=== PATIENT | female | born 1980 | race Caucasian/White ===

== ENCOUNTER 2017-12-20 11:25 | Inpatient (IN) | payer BC, OTHER ==
[~2017-12-20] VITALS: Ht 170.2 cm; Wt 61.7 kg
[~2017-12-20 11:25] MED LIST: POTASSIUM CHLORIDE 10 MEQ TAB.PRT.SR PO ONE
--- NOTE | 2017-12-20 13:30 | NUR ---
Pre-admission Pre-admission assessment performed in the intake department of [facility]. Pt is A&O and ambulatory with a steady gait. She appears mildly intoxicated with delayed thought process and speech. Vital signs are B/P: 133/92, HR 101, RR 16, O2 sat 99%, T 97.9, pain 0/10. Pt reports that she has been using Xanax and Fioricet. Last used both today prior to admission. Pt is stable and admission is to continue on the [facility].
[2017-12-20] MEDS ORDERED: TOPI50TA24 PO ×2 (14:33)
[2017-12-20] MEDS ORDERED: ESCI20TA PO (14:33)
[2017-12-20] MEDS ORDERED: AMIT50TA3 PO (14:33)
[2017-12-20] MEDS ORDERED: ALBU8.5H8 INH (14:33)
[2017-12-20] MEDS ORDERED: MELA5TAB PO (14:33)
[2017-12-20 15:02] LABS: *URINE HCG, QUAL NEGATIVE (NEGATIVE)
[2017-12-20 15:06] LABS: *AMPHETAMINE, URINE NEGATIVE (NEGATIVE); *BARBITURATE, URINE POSITIVE (NEGATIVE); *CANNABINOID, URINE POSITIVE (NEGATIVE); *COCCAINE, URINE NEGATIVE (NEGATIVE); *OPIATE, URINE NEGATIVE (NEGATIVE); *PHENCYCLIDINE SCREEN,URINE NEGATIVE (NEGATIVE)
[2017-12-20 16:00] VITALS: BP 133/92
[2017-12-20] MEDS ORDERED: ONDANSETRON ODT 4 MG TAB.RAPDIS SL PRN (16:00)
[2017-12-20] MEDS ORDERED: ACETAMINOPHEN 325 MG TABLET PO PRN (16:00)
[2017-12-20] MEDS ORDERED: MAGNESIUM HYDROXIDE 30 ML LIQUID UDC PO PRN (16:00)
[2017-12-20] MEDS ORDERED: ONDANSETRON 4 MG/2 ML VIAL IM PRN (16:00)
[2017-12-20] MEDS ORDERED: MAG HYDROX/AL HYDROX/SIMETH 30 ML LIQUID UDC PO PRN (16:00)
[2017-12-20] MEDS ORDERED: IBUPROFEN 400 MG TABLET PO PRN (16:00)
[2017-12-20] MEDS ORDERED: LORAZEPAM 2 MG/1 ML VIAL IM PRN (16:00)
[2017-12-20] MEDS ORDERED: LOPERAMIDE HCL 2 MG CAPSULE PO PRN ×2 (16:00)
[2017-12-20] MEDS ORDERED: THIAMINE HCL 200 MG/2 ML VIAL IM ONE (16:00)
--- NOTE | 2017-12-20 16:00 | NUR ---
ADMISSION NOTE Pt is a 37 year old female, A&Ox4. Pt is presenting herself to [facility] for medically supervised withdrawal from Xanax use and Fioricet use. Pt is observed intoxicated and is observed with delayed speech, delayed thought process and is unable to keep her eyes open. Pt is observed nodding in and out. Pt states she snorted 2mg of Xanax at 0900 and Fioricet 3 tabs PO at 0800. Pt also states she takes medical marijuana 40mg edible strips and she consumed 80mg of THC prior to entering intake. Body check was complete; skin is intact, warm and dry to touch. Lung sounds are clear bilaterally. Pt states of PMH of Anxiety, Depression, Insomnia, Asthma, Migraines and states she had 2 major head injuries (in 2000 and in 2014). Pt has also had her gallbladder removed 2 years ago and left knee reconstruction in 1996. Pt denies any hx of Sz. Pt is on Lexapro for Depression, Topamax for Migraines and was prescribed Xanax for anxiety. Pt states PCP is Dr. Delaney. Pt states she has allergies to Chocolate and follows a regular diet. Substance Hx are as follows: 1. Xanax Pt states she first began using Xanax in 2001 intermittently, but in 2013 she was prescribed Xanax for Anxiety after her divorce and began using on a daily basis. Pt states she has been using 2-4mg daily for the past 6 months and has been snorting it. Last use was on 12/20/17 at 0900, pt states she snorted 2mg. 2. Fioricet Pt states she first started using in May 2017. Pt states she has been using 3-6 tablets (150-300mg) 2-3times a week for the past 6 months. Last use was on 12/20/17, pt states she consumed 3 tables at 0800. Pt states she was also consuming medical marijuana for the past 2 years. Pt states she would purchase 40mg of THC strips and place 80mg underneath her tongue daily. Last use was on 12/20/17 prior to entering intake, pt states of placing 80mg of THC underneath her tongue. In addition, pt states of having history of drinking and became sober on 04/22/13 but relapsed for 1 day on 12/19/17 and drank 300ml of Jewel Mendoza. Pt was unable to verbalize insight in why she uses. She was observed nodding in and out with delayed speech and thought process. Pt stated she was assisted by her friend into detox because she asked for help stating to her friend, I need help, I cannot do this anymore. Pt stated, I dont want to . Pt verbalized this is her first time in treatment but did attempt sobriety on her own that was unsuccessful. Pt states, I cant seem to deal with the world it is right now. Everything is a trigger. Pt states she plans to continue with 30 day rehabilitation center at [facility]. Pt denies any 5150 or withdrawal induced delirium. Pt was seen and examined by Dr. Srivastava. Pt is to start on 5 day Phenobarbital today at 2100. New order was noted and carried out. Safety precautions observed. Will continue to monitor.
--- NOTE | 2017-12-20 19:10 | NUR ---
END OF SHIFT Pt is a newly admit for benzo withdrawal. Pt is to start on a 5 day Phenobarbital taper tonight. pt arrived on the unit intoxicated and went to sleep for the remaining of the shift. CIWA assessment is not applicable at this time. Pt is on fall and seizure precautions. Endorsed to film processing shift supervisor nurse to continue with care.
--- NOTE | 2017-12-20 19:30 | NUR ---
START OF SHIFT Received 37 year old female patient admitted on 12/20/17 for Benzodiazepine and Barbiturate withdrawal. Pt is alert and oriented x4. Pt noted to be disheveled, poor eye contact, irritable, anxious, guarded, agitated, and labile. She is scheduled to start a 5 day Phenobarbital taper tonight. Breathing even and unlabored, safety measures in place. Will continue to monitor.
[2017-12-20 20:00] VITALS: BP 134/89
--- NOTE | 2017-12-20 20:00 | NUR ---
CIWA Pt noted to be disheveled, with poor eye contact, irritable, anxious, guarded, agitated, and labile. CIWA:9 prior to 2100 medication administration. Will continue to monitor.
[2017-12-20] MEDS ORDERED: PHENOBARBITAL 60 MG TABLET PO SCH (21:00)
[2017-12-20 22:37] LABS: BASOPHILS % (AUTO) 0.6 % (0.0-2.0); EOSINOPHILS # (AUTO) 0.1 K/uL (0.0-0.7); EOSINOPHILS % (AUTO) 1.4 % (0.0-7.0); HEMATOCRIT 35.7 % (31.2-41.9); HEMOGLOBIN 12.3 g/dL (10.9-14.3); LYMPHOCYTES # (AUTO) 1.8 K/uL (20.0-40.0); LYMPHOCYTES % (AUTO) 37.3 % (20.5-51.5); MEAN CORPUSCULAR HEMOGLOBIN 33.4 uug (24.7-32.8); MEAN CORPUSCULAR HGB CONC 35 g/dL (32.3-35.6); MEAN CORPUSCULAR VOLUME 96.5 fL (75.5-95.3); MONOCYTES # (AUTO) 0.4 K/uL (2.0-10.0); MONOCYTES % (AUTO) 9.1 % (0.0-11.0); NEUTROPHILS # (AUTO) 2.5 K/uL (1.8-8.9); NEUTROPHILS % (AUTO) 51.6 % (38.5-71.5); PLATELET COUNT (AUTO) 217 K/uL (179-408); WHITE BLOOD COUNT (AUTO) 4.8 K/uL (3.8-11.8)
[2017-12-20 22:49] LABS: ALANINE AMINOTRANSFERASE 19 U/L (14-59); ALKALINE PHOSPHATASE 49 U/L (50-136); ASPARTATE AMINOTRANSFERASE 9 U/L (15-37); BILIRUBIN,TOTAL 0.3 mg/dL (0.2-1.0); CARBON DIOXIDE 27 mmol/L (21-32); CHLORIDE 106 mmol/L (98-107); CREATININE 0.8 mg/dL (0.6-1.3); GLUCOSE 90 mg/dL (74-106); MAGNESIUM 1.9 mg/dL (1.8-2.4); TOTAL PROTEIN, SERUM 6.5 g/dL (6.4-8.2); UREA NITROGEN, BLOOD 5 mg/dL (7-18)
[2017-12-20 22:59] LABS: ETHANOL < 3 MG/DL (0-0)
[2017-12-20] MEDS ORDERED: POTASSIUM CHLORIDE 10 MEQ TAB.PRT.SR PO ONE (23:30)
[2017-12-20 23:34] LABS: THYROID STIMULATING HORMONE 0.685 mIU/mL (0.358-3.740)
[2017-12-21] VITALS: BP 119/76
--- NOTE | 2017-12-21 | NUR ---
CIWA Pt noted with restlessness, fatigue, clammy skin and chills. CIWA:9. Will continue to monitor
[2017-12-21] MEDS ORDERED: POTASSIUM CHLORIDE 10 MEQ TAB.PRT.SR PO ONE (01:40)
[2017-12-21] MEDS: CLONIDINE HCL 0.1 MG TABLET PO PRN (01:54)
--- NOTE | 2017-12-21 01:56 | NUR ---
PRN CLONIDINE Pt noted with sweats, chills and diaphoresis. PRN Clonidine administered as ordered. Will monitor effectiveness.
--- NOTE | 2017-12-21 02:56 | NUR ---
PRN CLONIDINE REASSESSMENT PRN medication effective. Pt is lying in bed with eyes closed and is noted to be asleep. Breathing is even and unlabored, safety measures in place. Will monitor.
[2017-12-21 04:00] VITALS: BP 114/70
--- NOTE | 2017-12-21 04:00 | NUR ---
CIWA DEFERRED Pt lying in bed with eyes closed and is noted to be asleep. Breathing is even and unlabored, safety measures in place. Will monitor.
--- NOTE | 2017-12-21 07:12 | NUR ---
END OF SHIFT Pt is a 37 year old female patient admitted on 12/20/17 for Benzodiazepine and Barbiturate withdrawal. Pt remains alert and oriented x4. She was noted to be disheveled, poor eye contact, irritable, anxious, guarded, agitated, and labile during the shift. She is receiving a 5 day Phenobarbital taper and is tolerating well. She slept a total of 9 hrs, Intake: 500mL, Void: x1, BM:0, CIWA:9 at 0000. Breathing even and unlabored, safety measures in place. Endorsed to AM shift.
[2017-12-21 08:00] VITALS: BP 109/73
--- NOTE | 2017-12-21 08:00 | NUR ---
START OF SHIFT Pt is a 37 yr old female, AA&Ox4. pt was admitted on 12/20/17 for Benzo withdrawal and is on 5 day Phenobarbital taper as ordered. Received report from lead shop operator nurse. Pt was given Clonidine PRN during the night. Medication was effective. Pt slept for 9 hrs. Last CIWA score was 9. Pt is c/o anxiety, agitation, nausea, headache, muscle aches and sweats and chills. Skin is intact, warm and moist to touch. Pt was encouraged increase fluid intake. CIWA score is 14. Safety precautions observed. Call light is within reach. Will continue to monitor.
[2017-12-21] MEDS: ESCITALOPRAM OXALATE 10 MG TABLET PO SCH (08:28)
[2017-12-21] MEDS: PHENOBARBITAL 60 MG TABLET PO SCH ×4 (08:29→20:55)
[2017-12-21] MEDS: FOLIC ACID 1 MG TABLET PO SCH (08:29)
[2017-12-21] MEDS: THIAMINE HCL 100 MG TABLET PO SCH (08:29)
[2017-12-21] MEDS: MULTIVITAMINS,THERAPEUTIC TABLET PO SCH (08:29)
--- NOTE | 2017-12-21 08:29 | NUR ---
PRN GIVEN Pt was c/o headache /. Facial grimacing is observed. Pt was given Motrin 400mg PO PRN. Encouraged increase fluid intake. Will continue to monitor.
[2017-12-21] MEDS ORDERED: LORAZEPAM 1 MG TABLET PO PRN ×2 (08:45)
[2017-12-21] MEDS ORDERED: TUBERCULIN,PURIF.PROT.DERIV. 5 TU/0.1 ML TEST ID ONE (09:00)
--- NOTE | 2017-12-21 09:29 | NUR ---
PRN RE-ASSESSMENT Pt continues to c/o headache but states "the Motrin was a little effective". Encouraged increase fluid intake. Will continue to monitor.
[2017-12-21 12:00] VITALS: BP 118/66
[2017-12-21] MEDS ORDERED: Medication Not On Formulary EA (Topiramate 50 MG) PO SCH ×2 (14:30→18:00)
[2017-12-21] MEDS: TOPIRAMATE 25 MG TABLET PO SCH ×2 (14:50→20:55)
--- NOTE | 2017-12-21 14:52 | NUR ---
PRN GIVEN Pt was c/o headache, anxiety, nausea, sweats and chills. Pt is observed with fine tremors and runny nose. CIWA score was 14. Pt was given Ativan 1mg PO PRN and Topamax 50mg PO as scheduled for headache and s/s of w/d. Encouraged increase fluid intake. Will continue to monitor.
[2017-12-21 15:38] LABS: CREATININE 0.8 mg/dL (0.6-1.3); POTASSIUM 3.7 mmol/L (3.5-5.1)
[2017-12-21 16:00] VITALS: BP 113/74
--- NOTE | 2017-12-21 16:00 | NUR ---
PRN RE-ASSESSMENT Ativan 1mg PO PRN was effective. CIWA is now 10. Pt states, "it was helpful". Pt is c/o feeling depressed and is observed with flat affect and avoidant in eye contact. Pt was noted drinking the same water bottle throughout the day. Pt was encouraged to drink more fluids for hydration. Will continue to monitor.
--- NOTE | 2017-12-21 16:04 | NUR ---
Therapist prompted client to attend group therapy.
--- NOTE | 2017-12-21 19:10 | NUR ---
END OF SHIFT Pt is a 37 yr old female, AA&Ox4. Pt was admitted on 12/20/17 for Benzo withdrawal and is on 5 day Phenobarbital taper. Pt has been observed isolative and remained in her room throughout the day. Pt states of feeling depressed and was observed crying after speaking with therapist. Pt is observed with flat affect. Pt was c/o anxiety, agitation, headache, nausea, sweats and chills. Pt was given Motrin 400mg PO PRN at 0829 and Ativan 1mg PO PRN at 1450. Medication was effective. Last CIWA score was 10 at 1600. Pt was encouraged increase fluid intake for hydration. Safety precautions observed. Endorsed to manufacturing shift supervisor nurse to continue with care.
--- NOTE | 2017-12-21 19:30 | NUR ---
START OF SHIFT Received 37 year old female patient admitted on 12/20/17 for Benzodiazepine and Barbiturate withdrawal. Pt is alert and oriented x4. Pt noted with anxiety, chills, sweats, clammy skin, poor eye contact, lethargic, and withdrawn. Per endorsement, she received PRN Motrin and Ativan 1 mg. Last CIWA:10 at 1600. Breathing is even and unlabored, safety measures in place. Will monitor.
[2017-12-21 20:00] VITALS: BP 111/69
--- NOTE | 2017-12-21 20:00 | NUR ---
CIWA Pt noted with anxiety, chills, sweats, clammy skin, poor eye contact, lethargic, and withdrawn. CIWA:10 prior to 2100 medication administration. Will monitor.
[2017-12-21] MEDS: AMITRIPTYLINE HCL 50 MG TABLET PO SCH (20:56)
[2017-12-22] VITALS: BP 107/62
--- NOTE | 2017-12-22 | NUR ---
CIWA DEFERRED Pt lying in bed with eyes closed and is noted to be asleep. Breathing is even and unlabored, safety measures in place. Will monitor.
--- NOTE | 2017-12-22 04:00 | NUR ---
VITALS REFUSED, CIWA DEFERRED 0400 vitals refused. CIWA deferred. Pt lying in bed with eyes closed, noted to be asleep. Breathing even and unlabored, safety measures in place. Will monitor.
--- NOTE | 2017-12-22 07:02 | NUR ---
END OF SHIFT Pt is a 37 year old female patient admitted on 12/20/17 for Benzodiazepine and Barbiturate withdrawal. She remains alert and oriented x4. She was noted with anxiety, chills, sweats, clammy skin, poor eye contact, lethargic, and withdrawn behavior. Pt is disheveled and odorous. She did not receive or request PRN medications. She slept a total of 10 hrs, Intake: 150mL, Void: 0, BM:0, Last CIWA:10 at 2000. Breathing is even and unlabored, safety measures in place. Will endorse to AM shift.
--- NOTE | 2017-12-22 07:30 | NUR ---
start of shift note: received pt from night court magistrate nurse, pt is in stable condition at this time no s/s of pain or discomfort, pt [facility]/f[facility]icet, pt is tolerating phenobarbital taper well. no A/R noted. last documented ciwa is 10, will continue to monitor pt for any changes.
[2017-12-22 08:00] VITALS: BP 109/72
[2017-12-22] MEDS: ESCITALOPRAM OXALATE 10 MG TABLET PO SCH (08:32)
[2017-12-22] MEDS: THIAMINE HCL 100 MG TABLET PO SCH (08:32)
[2017-12-22] MEDS: PHENOBARBITAL 60 MG TABLET PO SCH ×3 (08:32→23:00)
[2017-12-22] MEDS: FOLIC ACID 1 MG TABLET PO SCH (08:32)
[2017-12-22] MEDS: MULTIVITAMINS,THERAPEUTIC TABLET PO SCH (08:33)
[2017-12-22] MEDS: TOPIRAMATE 25 MG TABLET PO SCH ×2 (08:33→23:01)
--- NOTE | 2017-12-22 08:40 | NUR ---
PRN administration: pt verbalized she Finally took a few bites of food and now that her stomach is uncomfortable, Maalox was administered and will re-assess effectiveness of medication.
[2017-12-22] MEDS ORDERED: Medication Not On Formulary EA (Escitalopram Oxalate (Lexapro) 20 MG) PO SCH (09:00)
--- NOTE | 2017-12-22 09:00 | NUR ---
ciwa: pt's ciwa is 13, pt with a headache, slight tremors, increased anxiety and agitation, slight stomach discomfort with breakfast this morning.
[2017-12-22 09:12] LABS: HEPATITIS B SURFACE AG Negative (Negative)
--- NOTE | 2017-12-22 09:40 | NUR ---
prn-assessment: pt verbalized maalox was effective and that stomach discomfort has diminished
--- NOTE | 2017-12-22 12:52 | NUR ---
Therapist prompted client to attend group therapy sessions.
[2017-12-22 13:00] VITALS: BP 139/84
[2017-12-22] MEDS: KETOROLAC TROMETHAMINE 30 MG INJ IM PRN (15:00)
--- NOTE | 2017-12-22 15:00 | NUR ---
PRN Toradol administration: pt with hx of head injury, prn toradol was administered for headache pain level 8/10, will re-assess effectiveness of medication.
--- NOTE | 2017-12-22 15:30 | NUR ---
PRN re-assessment: pt verbalized headache pain is diminished pain level 3/10 and pt is now able to attend group.
[2017-12-22 18:01] VITALS: BP 136/80
--- NOTE | 2017-12-22 19:14 | NUR ---
end of shift note: received report from egg breaker nurse that patient has a flat affect and depressed demeanor. pt throughout the day increased po intake in regards to food and started joining activities and groups. pt is interacting with other patients and stated she is starting to feel better, will encourage adequate food intake, and to attend groups and activities. will endorse pt to egg breaker nurse. Addendum: 12/22/17 at 1928 by LUISANA DE LA CRUZ RN last ciwa is 9, pt with slight headache, increased sweats, mild agitation and decreased anxiety.
--- NOTE | 2017-12-22 19:30 | NUR ---
Start of Shift Patient Received. Per endorsement, continues on a modified Phenobarbital taper. Patient received PRN Maalox and Toradol with medication noted to be effective. Patient has been noted isolative with flat and depressed affect. Patient has been noted to be engaging in social and group activities during morning shift. Upon rounds patient is noted walking and socializing with other clients. Patient and primary nurse at bedside and patient is able to verbalize I feel much better today. Im happy that Lizeth met other people here because it helps me to come out of my room. She is noted to be disheveled, anxious, restless, and tremulous. Patient verbalizes that the medications have been effective in minimizing signs and symptoms of withdrawal. All needs attended to promptly. Will continue plan of care as ordered.
[2017-12-22 20:30] VITALS: BP 145/95
[2017-12-22] MEDS: AMITRIPTYLINE HCL 50 MG TABLET PO SCH (23:00)
[2017-12-23 00:29] VITALS: BP 146/93
[2017-12-23] MEDS: diphenhydrAMINE 50 MG CAPSULE PO PRN ×2 (00:32→21:46)
[2017-12-23] MEDS: CLONIDINE HCL 0.1 MG TABLET PO PRN (00:32)
--- NOTE | 2017-12-23 00:35 | NUR ---
PRN Medication Administration Patient is noted pacing the hallways, verbalizes increased anxiety, insomnia, and restless. Patient is noted to be emotional. PRN Clonidine and Benadryl administered. Will continue to monitor.
--- NOTE | 2017-12-23 01:35 | NUR ---
PRN Medication Reassessment Patient is noted in bed with eyes closed. Breathing even and non labored. No signs of restlessness or discomfort noted. Patient received PRN Benadryl and Clonidine with medication noted to be effective. Will continue to monitor.
--- NOTE | 2017-12-23 04:15 | NUR ---
CIWA Assessment Patient is noted in bed with eyes closed. Breathing even and non labored. Patient refused vitals. CIWA not able to complete assessment as per order. No restlessness or discomfort noted. Will continue to monitor.
--- NOTE | 2017-12-23 07:16 | NUR ---
End of Shift Patient is noted in bed with eyes closed. Breathing even and non labored. Patient continues on a modified Phenobarbital taper. Patient received PRN Clonidine and Benadryl with medication noted to be effective. Patient noted to sleep a total of 6 hours. Last noted CIWA 13. She is noted to be anxious, restless, irritable, and labile. All needs attended to promptly. Will continue plan of care as ordered.
[2017-12-23 08:00] VITALS: BP 134/80
--- NOTE | 2017-12-23 08:00 | NUR ---
START OF SHIFT Pt is a 37 yr old female, AA&Ox4. pt was admitted on 12/20/17 for Benzo withdrawal and is on 5 day Phenobarbital taper as ordered. Received report from colorer machine nurse. Pt was given Clonidine PRN and Benadryl PRN during the night. Medication was effective. Pt slept for 6 hrs. Last CIWA score was 13. Pt is c/o anxiety, stating "I'm like jumping off the rodgers". Pt is stating her room feels so small and is observed walking around the unit. Pt is c/o headache, sweats and chills. Skin is intact, warm and moist to touch. Pt was encouraged increase fluid intake. CIWA score is 9 this morning. Safety precautions observed. Call light is within reach. Will continue to monitor.
[2017-12-23] MEDS: THIAMINE HCL 100 MG TABLET PO SCH (08:49)
[2017-12-23] MEDS: TOPIRAMATE 25 MG TABLET PO SCH ×2 (08:49→21:45)
[2017-12-23] MEDS: ESCITALOPRAM OXALATE 10 MG TABLET PO SCH (08:50)
[2017-12-23] MEDS: MULTIVITAMINS,THERAPEUTIC TABLET PO SCH (08:50)
[2017-12-23] MEDS: FOLIC ACID 1 MG TABLET PO SCH (08:50)
[2017-12-23] MEDS: PHENOBARBITAL 60 MG TABLET PO SCH ×2 (08:50→21:46)
[2017-12-23 12:00] VITALS: BP 134/84
[2017-12-23] MEDS: KETOROLAC TROMETHAMINE 30 MG INJ IM PRN (12:11)
--- NOTE | 2017-12-23 12:16 | NUR ---
PRN GIVEN Pt was c/o headache 11/01. pt was in recreation room noted in position and stating her head hurts. VS are BP 134/84, HR 88, RR 16, O2 is 99%. Toradol 30ml IM PRN was given for 11/01 headache. Pt was encouraged increase fluid intake for hydration. CIWA score is 16. Will continue to monitor.
--- NOTE | 2017-12-23 12:43 | NUR ---
therapist prompted client to attend group therapy.
--- NOTE | 2017-12-23 13:16 | NUR ---
PRN RE-ASSESSMENT Toradol PRN was effective. Pt states of still having a headache but pain level is 4/10. Pt was encouraged increase fluid intake. Will continue to monitor.
[2017-12-23 16:00] VITALS: BP 128/88
--- NOTE | 2017-12-23 18:59 | NUR ---
END OF SHIFT Pt is a 37 yr old female, AA&Ox4. Pt was admitted on 12/20/17 for Benzo withdrawal and is on 5 day Phenobarbital taper as ordered. Pt has been cooperative with medication regimen and plan of care. Pt was observed attending group therapy. Pt has been c/o increase headache 9/10 and anxiety. Pt has been observed emotional with episodes of crying. Pt was given Toradol 30mg IM PRN at 1211 for increase headache 9/10. Medication was effective. Pt continues to c/o headache but is able to tolerate pain level. Last CIWA score was 12 at 1600. Pt was encouraged increase fluid intake for hydration. Endorsed to retail shift supervisor nurse to continue with care.
--- NOTE | 2017-12-23 19:45 | NUR ---
Start of Shift Patient Received. Patient continues on a modified Phenobarbital taper. She has been compliant with plan of care and attending group therapy. She was reported increased headaches, dizziness, and anxiety. She received PRN Toradol with medication reported to be effective. Patient is noted with improvement with meals but encouragement is still needed with fluid intake. Upon rounds patient is noted in the activities room participating in a group meeting. Upon exiting the group meeting patient stopped at the nurses station to receive smoking pass. Patient was noted to state Did they report to you that I fell over today because I have been dizzy all day. Asked patient to explain further, and she was noted to state well I didnt really fall over. I just have been dizzy. Explained to patient that patient would need to remain on unit and unable to go out to smoking patio due to patient reporting episodes of dizziness. Patient immediately retracted her statements and states Im not dizzy. I dont want to not be able to go outside or be kept her longer. CN and Primary nurse at bedside with patient. Patient denies any episodes of dizziness since prior to dinner. Vitals rendered and noted. Explained to patient that she would be able to smoke as long as she is compliant with using a wheelchair while off the unit. Patient verbalized understanding. She is noted to be emotionally labile. Patient is noted to remain in bed. Encouraged fluids as tolerated with fluids at bedside. Will continue to monitor.
[2017-12-23 20:06] VITALS: BP 131/88
--- NOTE | 2017-12-23 20:30 | NUR ---
CIWA Assessment patient is noted with increased anxiety, agitation, tremors, verbalizing increased light sensitivity, dizziness, and noted to be emotionally labile. CIWA noted to be 18. Medications administered as ordered. Will continue to monitor.
[2017-12-23] MEDS: AMITRIPTYLINE HCL 50 MG TABLET PO SCH (21:44)
--- NOTE | 2017-12-23 21:46 | NUR ---
PRN Medication Administration Patient is noted verbalizing inability of falling asleep. PRN Benadryl administered with routine medications. Will continue to monitor.
--- NOTE | 2017-12-23 22:45 | NUR ---
PRN Medication Reassessment Patient is noted in bed with eyes closed. Breathing even and non labored. No signs of restlessness or facial grimacing noted. PRN Benadryl noted to be effective. Will continue to monitor.
--- NOTE | 2017-12-24 00:20 | NUR ---
VITALS AND CIWA DEFERRED Patient noted to be lying in bed with eyes closed and breathing even and unlabored. Vital signs refused and CIWA assessment deferred. Will continue to monitor.
[2017-12-24 04:22] VITALS: BP 119/75
[2017-12-24] MEDS: KETOROLAC TROMETHAMINE 30 MG INJ IM PRN (04:40)
--- NOTE | 2017-12-24 04:40 | NUR ---
PRN MEDICATION ADMINISTRATION During 0400 vital sign assessment, patient reported a headache with an 8/10 pain level. Toradol 30 mg IM PRN was administered to the right upper extremity. Will continue to monitor.
--- NOTE | 2017-12-24 05:40 | NUR ---
PRN MEDICATION REASSESSMENT Patient noted to be lying in bed with eyes closed and even and unlabored respirations. No facial grimacing or diaphoresis noted. PRN medication noted to be effective. Will continue to monitor.
--- NOTE | 2017-12-24 07:11 | NUR ---
END OF SHIFT Patient is noted to be in bed with eyes closed and respirations even and unlabored. She continues on a modified Phenobarbital taper. Patient is noted to be emotionally labile, depressed, flat affect, and restless. Upon initial assessment, she reported that she felt dizzy. It was explained to the patient that due to the recent reported episodes of dizziness, she would be required to use a wheelchair when going outside of the unit to smoke. Patient verbalized understanding. PRN Toradol and Benadryl administered with medications noted to be intermittently effective. Patient noted to sleep 4 hours. Last CIWA score is 18 at 0400. Patient noted to have negative attention seeking behavior, poor coping skills, and medication focused thoughts. Endorsed to oncoming AM nurse.
[2017-12-24 08:00] VITALS: BP 114/79
--- NOTE | 2017-12-24 08:00 | NUR ---
Start of Shift Notes/CIWA Assessment: Received endorsement from night nurse. Patient is a 37 year old female admitted for BZO and Fioricet withdrawal who was placed on a 5-day Phenobarbital taper as ordered. No adverse reactions noted. This is patient's 5th day of his taper. Per night nurse, patient was given PRN Toradol during the day. Slept for 6 hours. Upon receiving patient, she was seen in her room. Mood is labile, volatile and complaining of a "splitting headache" and describes it a 6 out of 10 at this time. She was noted with gross tremors, anxiety and agitation. CIWA 15. Educated patient on his current plan of care for the day and his medication regimen. Encouraged oral fluid intake and encouraged group participation to learn new skills to prevent relapse. All needs met and attended. Will continue to monitor closely.
[2017-12-24] MEDS: THIAMINE HCL 100 MG TABLET PO SCH (08:50)
[2017-12-24] MEDS: MULTIVITAMINS,THERAPEUTIC TABLET PO SCH (08:50)
[2017-12-24] MEDS: FOLIC ACID 1 MG TABLET PO SCH (08:50)
[2017-12-24] MEDS: ESCITALOPRAM OXALATE 10 MG TABLET PO SCH (08:50)
--- NOTE | 2017-12-24 08:50 | NUR ---
Tylenol 650 mg PO given: Patient was given Tylenol 650 mg PO for headache of 6 out of 10. Will monitor for effectiveness.
[2017-12-24] MEDS: TOPIRAMATE 25 MG TABLET PO SCH ×2 (08:53→20:46)
[2017-12-24] MEDS ORDERED: PHENOBARBITAL 60 MG TABLET PO SCH (09:00)
--- NOTE | 2017-12-24 09:50 | NUR ---
Re-assessment: Tylenol Patient verbalizes that her headache is now a 2 out of 10. PRN Tylenol effective.
[2017-12-24 12:00] VITALS: BP 125/80
--- NOTE | 2017-12-24 12:30 | NUR ---
CIWA Assessment: CIWA 13, patient continues to present with s/s of withdrawal m/b increased emotional amplitude, anxiety, agitation, gross tremors, headache, worried facial expression and mood swings. Offered PRNs. Will continue to monitor.
[2017-12-24] MEDS ORDERED: DIPH50CA37 PO (14:01)
[2017-12-24] MEDS ORDERED: CLON0.1T14 PO (14:01)
[2017-12-24] MEDS ORDERED: AMIT100T2 PO (14:59)
[2017-12-24 16:00] VITALS: BP 130/86
--- NOTE | 2017-12-24 16:05 | NUR ---
CIWA Assessment: CIWA 13, patient continues to present with increased emotional amplitude, anxiety, agitation, gross tremors, headache, worried facial expression and mood swings. Offered PRNs. Will continue to monitor.
--- NOTE | 2017-12-24 17:49 | NUR ---
Vistaril 50 mg/Ibuprofen 400 mg PO given: Patient complained of 5/10 headache and anxiety. Non-pharmacological interventions provided but ineffective. Medicated patient with Vistaril 50 mg Po and Ibuprofen 400 mg PO as ordered. Will monitor for effectiveness. Addendum: 12/24/17 at 1850 by TRAN MALAVE LVN error in charting
--- NOTE | 2017-12-24 18:48 | NUR ---
Re-assessment: Vistaril/Ibuprofen Patient verbalizes relief from anxiety and headache and reports that her pain level is now a 2 out of 10. PRN Vistaril and Ibuprofen effective. Addendum: 12/24/17 at 1850 by TRAN MALAVE LVN error in charting
--- NOTE | 2017-12-24 18:50 | NUR ---
START OF SHIFT NOTE: Endorsed patient is a 37 year old female admitted on 2017 for Benzodiazepines (Xanax) and Fioricet withdrawal, completed ordered 5 Day Phenobarbital Taper initiated which tolerated well. Patient scheduled for discharge tomorrow at 0930. Withdrawal symptoms will be closely monitoring. Patient is alert and oriented x4: Person, Place, Time, and Situation. Patient reports allergy to Chocolate, Regular Diet, is on Full Code, is on Fall and Seizures Precautions. Patient denies Fall and Seizures History. Patient denies SI/HI. PMH: Anxiety, Depression, Insomnia, Migraines, 2 Major Head injuries, Left knee reconstruction, and Gallbladder removal. The most recent CIWA=13 at 1600: Patient noted with anxious mood and liable affect. Patient experienced anxiety, agitation, emotional liability, irritability, nervousness, headache, sweating, bilateral tremors, fatigue, and restlessness. PRN Tylenol 650 mg PO administrated for pain at 0850, and was effective. Patient remains compliant with treatment, medications, and diet regimen. Respirations are even and unlabored. Skin is intact, warm, and dry to touch. Encouraged to intake fluids as tolerated. Encouraged to attend group activities. Safe and calm environment provided. All needs met. Safety measures in place: Call light within reach, bed is locked, and in lowest position, padded bed rails up x 2. Endorsed by outgoing day shift nurse. Will continue to monitor closely.
--- NOTE | 2017-12-24 19:07 | NUR ---
End of Shift Notes: Patient continues to be on 5-day Phenobarbital taper as ordered. No adverse reactions noted. VS monitored closely. No significant abnormalities noted. Withdrawal symptoms were closely monitored. Initial CIWA 15, patient presented with gross tremors, anxiety, agitation, intermittent perspiration, headache, increased emotional amplitude, emotional lability, depressed mood, fatigue and generalized discomfort. Denies S/I or H/I noted. No AV hallucinations noted. Last CIWA 13. Patient verbalizes that Phenobarbital has been effective in reducing his withdrawal symptoms. She was encouraged to participate in group and activities due to need of constant redirection and poor coping skills to feel any discomfort. Medicated patient with Tylenol 650 mg PO at 0850 with help. Appetite fair. All needs met and attended. Will continue to monitor.
[2017-12-24 20:00] VITALS: BP 133/89
--- NOTE | 2017-12-24 20:00 | NUR ---
CIWA ASSESSMENT CIWA=15: Patient noted with anxious mood and depressive/flat affect. Patient experienced anxiety, agitation, emotional liability, irritability, nervousness, headache, sweating, bilateral tremors, fatigue, and restlessness. Scheduled and PRN medications will be administrated, as ordered. Encouraged to intake fluids as tolerated. Safe and calm environment provided. All needs met. Safety measures in place: Call light within reach, bed is in lowest position, and locked, padded bedrails up x2. Will continue to monitor.
[2017-12-24] MEDS: AMITRIPTYLINE HCL 50 MG TABLET PO SCH (20:45)
[2017-12-24] MEDS: diphenhydrAMINE 50 MG CAPSULE PO PRN (20:46)
[2017-12-24] MEDS: CLONIDINE HCL 0.1 MG TABLET PO PRN (23:59)
--- NOTE | 2017-12-24 23:59 | NUR ---
PRN CLONIDINE PO ADMINISTRATION: PRN Clonidine 0.1 mg PO administered for anxiety at 2359 per patient demand, as ordered. Patient tolerated well. Re-assessment will be done in one hour. Encouraged to intake fluids as tolerated. Safe and calm environment provided. All needs met. Safety measures in place: Call light within reach, bed is in lowest position, and locked, padded bedrails up bilaterally. Will continue to monitor.
[2017-12-25] VITALS: BP 145/90
--- NOTE | 2017-12-25 | NUR ---
CIWA ASSESSMENT CIWA=15: Patient presented anxious and agitated, noted with nervousness, with tears, flashing face, bilateral tremors, restlessness, barely sweating, and fatigue. PRN Clonidine 0.1 mg PO administrated for anxiety, as ordered. Patient tolerated well. Encouraged to intake fluids as tolerated. Safe and calm environment provided. 1:1 sitter at bedside for safety. All needs met. Safety measures in place: Call light within reach, bed is in lowest position, and locked, padded bedrails up x2. Will continue to monitor.
--- NOTE | 2017-12-25 | NUR ---
VS REFUSED, CIWA DEFERRED VS refused and CIWA deferred at 0000 due patient sleeping. Respirations are unlabored and even. RR:14. Assessment will be done and CIWA scored while patient will awake. Safe and calm environment provided. All needs met. Safety measures in place: Call light within reach, bed is in lowest position, and locked, padded bedrails up bilaterally. Will continue to monitor. Addendum: 12/25/17 at 0307 by AMANDA DUNCAN RN wrong notes
--- NOTE | 2017-12-25 00:59 | NUR ---
PRN RE-ASSESSMENT Patient is sleeping. RR:14. Respirations are even and unlabored. PRN Clonidine 0.1 mg PO administered for anxiety at 2359 was effective. Safe and calm environment provided. 1:1 sitter at bedside as ordered. All needs met. Safety measures in place: Call light within reach, bed is in lowest position, and locked, padded bedrails up bilaterally. Will continue to monitor.
--- NOTE | 2017-12-25 04:00 | NUR ---
VS REFUSED, CIWA DEFERRED VS refused and CIWA deferred at 0400 due patient sleeping. Respirations are unlabored and even. RR:16. Assessment will be done and CIWA scored while patient will awake. Safe and calm environment provided. 1:1 sitter at bedside as ordered. All needs met. Safety measures in place: Call light within reach, bed is in lowest position, and locked, padded bedrails up bilaterally. Will continue to monitor.
--- NOTE | 2017-12-25 07:13 | NUR ---
END OF SHIFT NOTE: This report given for patient, a 37 year old female, completed 5 Day Phenobarbital Taper ordered for Benzodiazepines (Xanax) and Fioricet withdrawal. The patient tolerated well. Patient scheduled for discharge today at 0930. Patient is alert and oriented x4: Person, Place, Time, and Situation, appears disheveled, unkempt, with uncombed hair, and noted with anxious mood and liable affect. Withdrawal symptoms was closely monitored. Initial CIWA=15 at 2000. Last CIWA=15 at 0000: Patient experienced anxiety, agitation, emotional liability, irritability, nervousness, headache, sweating, bilateral tremors, fatigue, and restlessness. PRN Clonidine 0.1 mg PO administered for anxiety at 2359 was effective. Patient remains compliant with treatment, medications, and diet regimen. Patient denies SI/HI. Respirations are even and unlabored. Skin is intact, warm, and dry to touch. Encouraged to intake fluids as tolerated. Encouraged to attend group activities. 1:1 sitter at bedside for safety. Safe and calm environment provided. Patient slept for 7 hours, intake 1,200 ml, voided x1. All needs met. Safety measures in place: Call light within reach, bed is locked, and in lowest position, padded bed rails up x 2. Endorsed to day shift nurse.
--- NOTE | 2017-12-25 07:57 | NUR ---
Start of shift note; Received report from night nurse. Patient is a 37 year old female admitted on 12/20/17 for Benzodiazepine withdrawals. Patient completed a 5 day Phenobarbital taper, tolerated treatment well. Patient is AOX4, appears to be nervous and anxious about upcoming discharge. Patient is on 1:1 supervision for safety. Patient slept for 7 hours. Patient received PRN Clonidine noted to be effective. Patient is medically cleared for discharge today. Patient denies suicidal ideations, patient also denies homicidal ideations. Patient denies any plans of harming herself. All safety measures secured. Will continue to monitor patient.
[2017-12-25 08:00] VITALS: BP 115/73
[2017-12-25] MEDS: ESCITALOPRAM OXALATE 10 MG TABLET PO SCH (08:37)
[2017-12-25] MEDS: FOLIC ACID 1 MG TABLET PO SCH (08:37)
[2017-12-25] MEDS: TOPIRAMATE 25 MG TABLET PO SCH (08:37)
[2017-12-25] MEDS: THIAMINE HCL 100 MG TABLET PO SCH (08:37)
[2017-12-25] MEDS: MULTIVITAMINS,THERAPEUTIC TABLET PO SCH (08:38)
--- NOTE | 2017-12-25 08:48 | NUR ---
Patient Assessment; Patient is AOX4, denies any suicidal ideations, patient denies homicidal ideations. Patient also denies plans of harming herself. Patient is ready and medically cleared for discharge per MD , to be transferred to [facility].
--- NOTE | 2017-12-25 09:54 | NUR ---
Discharge note; Patient is AXO4, denies Suicidal ideation or homicidal ideation. Patient completed treatment without any adverse reactions. Patient is medically cleared for discharge per MD Patient to be transferred to [facility]. Patient was escorted out of the unit by DELIVERY ARCHITECT. Patient was accompanied by [employer] transportation. All valuables, home medications, belongings, and prescription given to patient. Patient left in a stable condition. Met all needs.
== END 2017-12-25 09:54 | disposition other institution (70) | DRG 895 ==
LOC: SRC 12:35
PROVIDERS: ADMIT Family Medicine Addiction Medicine; ATTEND Family Medicine Addiction Medicine
PROC: HZ2ZZZZ Detoxification Services for Substance Abuse Treatment (ICD-10-PCS; principal; 2017-12-20)
PROC: HZ31ZZZ Individual Counseling for Substance Abuse Treatment, Behavioral (ICD-10-PCS; 2017-12-21)
PROC: HZ41ZZZ Group Counseling for Substance Abuse Treatment, Behavioral (ICD-10-PCS; 2017-12-22)
DX: F13.230 Sedative, hypnotic or anxiolytic dependence with withdrawal, uncomplicated (principal); F17.210 Nicotine dependence, cigarettes, uncomplicated; F10.11 Alcohol abuse, in remission; F14.120 Cocaine abuse with intoxication, uncomplicated; Y90.0 Blood alcohol level of less than 20 mg/100 ml; F41.1 Generalized anxiety disorder; G47.00 Insomnia, unspecified; J45.20 Mild intermittent asthma, uncomplicated; G43.909 Migraine, unspecified, not intractable, without status migrainosus; F32.9 Major depressive disorder, single episode, unspecified; E87.6 Hypokalemia; Z90.49 Acquired absence of other specified parts of digestive tract; Z96.652 Presence of left artificial knee joint
CPT/HCPCS: 36415; 70030-TC; 80307; 83735; 84443; 84703; 85025; 86580; 86592; 86705; 86803; 87340; 87806; A4663; G0480; J1885; J8499; Q0163